=== PATIENT | male | born 1940 | race Caucasian/White ===

== ENCOUNTER 2019-07-18 10:14 | Emergency (ER) | payer MEDICARE, OTHER ==
[2019-07-18 10:48] LABS: BASOPHILS % (AUTO) 0.3 %; EOSINOPHILS # (AUTO) 0.1 10^3/uL (0.0-0.7); EOSINOPHILS % (AUTO) 1.1 %; HGB - HEMOGLOBIN 15.7 g/dL (14.0-18.0); LYMPHOCYTES # (AUTO) 1.3 10^3/uL (1.5-3.5); LYMPHOCYTES % (AUTO) 11.5 %; MEAN CORPUSCULAR HGB CONC 34.7 g/dL (32.0-36.0); MEAN CORPUSCULAR VOLUME 100.7 fL (80.0-94.0); MEAN PLATELET VOLUME 10.6 fL (7.4-11.4); MONOCYTES # (AUTO) 0.9 10^3/uL (0.0-1.0); MONOCYTES % (AUTO) 7.5 %; NEUTROPHILS # (AUTO) 9.1 10^3/uL (1.5-6.6); NEUTROPHILS % (AUTO) 79.3 %; PLT - PLATELET COUNT 184 10^3/uL (130-450); RED BLOOD COUNT 4.49 10^6/uL (4.70-6.10); RED CELL DISTRIBUTION WIDTH 13.3 % (12.0-15.0); WHITE BLOOD COUNT 11.4 x10^3/uL (4.8-10.8)
[2019-07-18 11:02] LABS: ALBUMIN 4.4 g/dL (3.2-5.5); ALBUMIN/GLOBULIN RATIO 1.3 (1.0-2.2); BILIRUBIN,TOTAL 1.7 mg/dL (0.2-1.0); CALCIUM 8.8 mg/dL (8.5-10.3); TOTAL PROTEIN 7.9 g/dL (6.7-8.2)
--- NOTE | 2019-07-18 11:04 | ED Physician Documentation ---
PD HPI ABD PAIN - Stated complaint Stated Complaint: ABDOMINAL PX - Chief complaint Chief Complaint: Abd Pain - History obtained from History obtained from: Patient - History of Present Illness Timing - onset: Today Timing - duration: Days (1) Timing - details: Gradual onset Pain level max: 8 Pain level now: 3 Quality: Aching, Pain Location: Suprapubic, LLQ Improved by: Laying still Worsened by: Moving, Palpation Associated symptoms: Diarrhea. No: Fever, Nausea, Vomiting, Hematemesis, Constipation, Melena, Hematochezia, Dysuria Similar symptoms before: Diagnosis (diverticulitis) Review of Systems Constitutional: denies: Fever, Chills GI: denies: Vomiting, Hematemesis, Bloody / black stool Skin: denies: Rash Musculoskeletal: denies: Neck pain, Back pain Neurologic: denies: Headache PD PAST MEDICAL HISTORY - Past Medical History Past Medical History: Yes GI: Diverticulitis - Present Medications Home Medications: Ambulatory Orders Medication Instructions Recorded Confirmed Amox/Clav 875/125 [Augmentin] 1 each PO Q12H #20 tablet 07/18/19 - Allergies Allergies/Adverse Reactions: Allergies Allergy/AdvReac Type Severity Reaction Status Date / Time No Known Drug Allergies Allergy Verified 07/18/19 10:29 - Social History Does the pt smoke?: No Smoking Status: Never smoker PD ED PE NORMAL - Vitals Vital signs reviewed: Yes - General General: Alert and oriented X 3, No acute distress, Well developed/nourished - HEENT HEENT: PERRL, Moist mucous membranes - Neck Neck: Supple, no meningeal sign - Cardiac Cardiac: RRR - Respiratory Respiratory: No respiratory distress, Clear bilaterally - Abdomen Abdomen: Soft, Non distended, Other (Tender to palpation suprapubic and left lower quadrant. No peritoneal signs.) - Derm Derm: Warm and dry - Extremities Extremities: No edema - Neuro Neuro: Alert and oriented X 3 - Psych Psych: Normal mood, Normal affect Results - Vitals Vitals: Vital Signs - 24 hr 07/18/19 07/18/19 10:17 13:11 Temperature 36.9 C 36.8 C Heart Rate 86 95 Respiratory 20 17 Rate Blood Pressure 135/88 H 165/82 H O2 Saturation 97 98 Oxygen O2 Source Room air - Labs Labs: Laboratory Tests 07/18/19 07/18/19 10:40 10:40 WBC 11.4 H RBC 4.49 L Hgb 15.7 Hct 45.2 MCV 100.7 H MCH 35.0 H MCHC 34.7 RDW 13.3 Plt Count 184 MPV 10.6 Neut # (Auto) 9.1 H Lymph # (Auto) 1.3 L Lander # (Auto) 0.9 Eos # (Auto) 0.1 Baso # (Auto) 0.0 Absolute Nucleated RBC 0.00 Nucleated RBC % 0.0 Sodium 134 L Potassium 3.7 Chloride 104 Carbon Dioxide 24 Anion Gap 6.0 BUN 23 H Creatinine 1.0 Estimated GFR (MDRD) 72 L Glucose 108 H Calcium 8.8 Total Bilirubin 1.7 H AST 32 ALT 20 Alkaline Phosphatase 81 Total Protein 7.9 Albumin 4.4 Globulin 3.5 Albumin/Globulin Ratio 1.3 Lipase 25 - Rads (name of study) CT abd/pelvis Radiology: Prelim report reviewed, EMP read contemporaneously, See rad report (1. Sigmoid tic colitis with no pericolic abscess identified. 2. Small gallstones 2-3 mm gallbladder neck with no CT evidence for cholecystitis or biliary obstruction. ) PD MEDICAL DECISION MAKING - ED course Complexity details: reviewed results, re-evaluated patient, considered differential, d/w patient ED course: 79-year-old male presents to the emergency department with a sigmoid tic colitis. No abscess. Will place on antibiotics. He is well-appearing, nontoxic. Afebrile. Patient counseled regarding signs and symptoms for which I believe and urgent re-evaluation would be necessary. Patient with good understanding of and agreement to plan and is comfortable going home at this time This document was made in part using voice recognition software. While efforts are made to proofread this document, sound alike and grammatical errors may occur. Departure - Departure Disposition: 01 Home, Self Care Clinical Impression: Diverticulitis of gastrointestinal tract Condition: Good Instructions: ED Diverticulitis Follow-Up: Arian Coe MD [Primary Care Provider] - Within 3 Days Prescriptions: Amox/Clav 875/125 [Augmentin] 1 each PO Q12H #20 tablet Comments: Take all antibiotics until gone. Return if you worsen. This should improve over the next 24 to 48 hours. Return if you worsen including worsening pain or fever. Discharge Date/Time: 07/18/19 13:12
[2019-07-18] MEDS ORDERED: IOVERSOL 320 100 ML VIAL IVP ONE ×2 (11:08→15:29)
--- NOTE | 2019-07-18 12:47 | CT Report ---
Reason: lower abd pain Procedure Date: 07/18/2019 Accession Number: [id number] / [id number] Procedure: CT - Abdomen/Pelvis W CPT Code: Final Report FULL RESULT: EXAM: CT ABDOMEN AND PELVIS EXAM DATE: 07/18/2019 11:31 AM. CLINICAL HISTORY: Lower abd pain. COMPARISONS: None. TECHNIQUE: Routine helical CT imaging was performed through the abdomen and pelvis. IV contrast: OPTIRAY 320. Enteric contrast: No. Reconstructions: Coronal and sagittal. In accordance with CT protocol optimization, one or more of the following dose reduction techniques were utilized for this exam: automated exposure control, adjustment of mA and/or KV based on patient size, or use of iterative reconstructive technique. FINDINGS: Lung Bases: Unremarkable. Liver: Fatty infiltration of the liver. Liver is negative for focal mass or intrahepatic biliary dilatation. Gallbladder/Bile Ducts: Common bile duct caliber 4 mm. Negative for calcified distal common bile duct stone. Small 2-3 mm gallstones gallbladder neck. Negative for pericholecystic fluid. Spleen: Normal. Pancreas: Pancreas is negative for focal mass or pancreatic duct dilatation. Multifocal calcification pancreatic body suggestive of focal chronic pancreatitis. Adrenal Glands: Normal. Kidneys: Normal. No masses or hydronephrosis. Peritoneal Cavity/Bowel: Segmental wall thickening sigmoid colon with pericolic inflammatory changes consistent with diverticulitis. Negative for pericolic abscess. The appendix is well visualized and normal. Pelvic Organs: Normal. The bladder and visualized pelvic organs are within normal limits. Vasculature: Moderate atheromatous changes with the calcification abdominal aorta. Maximum transverse dimension abdominal aorta 2.5 cm. Celiac artery and superior mesenteric artery negative for stenosis. Main renal arteries negative for stenosis. Normal enhancement of the superior mesenteric vein and portal vein. Bones: Severe disk degeneration L5-S1. Moderate right and mild left L5-S1 foraminal stenosis. Diffuse disk bulge L4-L5. Moderate spinal canal stenosis L4-L5 from disk bulge and facet hypertrophy. Mild bilateral L4-L5 foraminal stenosis. Mild spinal canal stenosis and mild bilateral lateral recess stenosis L3-L4 from facet hypertrophy and ligamentum flavum thickening. Ankylosis anterior right sacroiliac joint. Other: Small bilateral inguinal hernias containing fat with the right greater than the left. IMPRESSION: 1. Sigmoid tic colitis with no pericolic abscess identified. 2. Small gallstones 2-3 mm gallbladder neck with no CT evidence for cholecystitis or biliary obstruction. RADIA
[2019-07-18] MEDS ORDERED: AMOX/CLAV 875 MG/125 MG TABLET PO STA (12:58)
[2019-07-18 13:12] VITALS: BP 165/82
== END 2019-07-18 13:12 | disposition home or self-care (01) ==
LOC: ED 10:14
DX: K57.32 Diverticulitis of large intestine without perforation or abscess without bleeding (principal)
CPT/HCPCS: 36415; 74177; 80053; 83690; 85025; 99284; A9270; Q9967

== ENCOUNTER 2021-07-28 13:18 | Outpatient (CLI) | payer MEDICARE, OTHER ==
[2021-07-28 20:16] LABS: HCT - HEMATOCRIT 39.9 % (42.0-52.0); HGB - HEMOGLOBIN 13.6 g/dL (14.0-18.0); MEAN CORPUSCULAR HGB CONC 34.1 g/dL (32.0-36.0); MEAN CORPUSCULAR VOLUME 99.8 fL (80.0-94.0); MEAN PLATELET VOLUME 11.8 fL (7.4-11.4); WHITE BLOOD COUNT 5.9 x10^3/uL (4.8-10.8)
[2021-07-28 20:18] LABS: CALCIUM 9.6 mg/dL (8.5-10.3); CREATININE 1.1 mg/dL (0.6-1.2); POTASSIUM 4.2 mmol/L (3.5-5.0)
[2021-07-28 20:21] LABS: PARTIAL THROMBOPLASTIN TIME 29.7 secs (24.9-33.3)
[2021-07-28 20:27] LABS: INR 1.2 (0.8-1.2); PT - PROTHROMBIN TIME 12.9 secs (9.9-12.6)
== END 2021-07-28 13:19 | disposition home or self-care (01) ==
LOC: LAB.S 13:18
PROVIDERS: ATTEND Internal Medicine
DX: R06.09 Other forms of dyspnea (principal)
CPT/HCPCS: 36415; 80048; 85027; 85610; 85730

== ENCOUNTER 2023-12-14 07:38 | Emergency (ER) | payer MEDICARE, OTHER ==
[2023-12-14 08:06] LABS: BASOPHILS % (AUTO) 0.3 %; EOSINOPHILS # (AUTO) 0.2 10^3/uL (0.0-0.7); EOSINOPHILS % (AUTO) 3.1 %; HCT - HEMATOCRIT 38.8 % (42.0-52.0); HGB - HEMOGLOBIN 13.2 g/dL (14.0-18.0); LYMPHOCYTES # (AUTO) 0.9 10^3/uL (1.5-3.5); LYMPHOCYTES % (AUTO) 11.4 %; MEAN CORPUSCULAR HEMOGLOBIN 34.4 pg (27.0-31.0); MEAN PLATELET VOLUME 10.8 fL (7.4-11.4); MONOCYTES # (AUTO) 0.7 10^3/uL (0.0-1.0); MONOCYTES % (AUTO) 9.1 %; NEUTROPHILS # (AUTO) 5.8 10^3/uL (1.5-6.6); NEUTROPHILS % (AUTO) 75.8 %; PLT - PLATELET COUNT 153 10^3/uL (130-450); RED BLOOD COUNT 3.84 10^6/uL (4.70-6.10); RED CELL DISTRIBUTION WIDTH 12.8 % (12.0-15.0); WHITE BLOOD COUNT 7.7 x10^3/uL (4.8-10.8)
--- NOTE | 2023-12-14 08:11 | ED Physician Documentation ---
PD HPI ABD PAIN - Stated complaint Stated Complaint: LT FLANK PX - Chief complaint Chief Complaint: Abd Pain - History obtained from History obtained from: Patient, Family ( Petra) - History of Present Illness Timing - onset: How many days ago (2) Timing - duration: Days (2) Timing - details: Gradual onset, Still present Quality: Cramping, Sharp, Pain Location: LLQ Radiation: Left flank Improved by: Laying still Worsened by: Position, Palpation Associated symptoms: Nausea, Diarrhea (4 loose stools yesterday). No: Vomiting Similar symptoms before: Diagnosis (diverticulitis) Recently seen: Not recently seen - Additional information Additional information: Tien Sanderson is an 83-year-old male with a prior history of diverticulitis who presents to the emergency department today with abdominal pain in the left lower quadrant for 2 days. He has had some nausea associated with this he has not had any vomiting he has had 4 loose stools yesterday no blood was noted. He has a 2 out of 10 pain at rest and the pain increases dramatically with palpation. He has had chills he has not had fever. He has a history of coronary artery disease, has [address] and is treated for hypertension and hyperlipidemia.. Review of Systems Constitutional: reports: Chills, Sweats. denies: Fever Eyes: denies: Decreased vision Ears: denies: Ear pain Nose: denies: Rhinorrhea / runny nose, Congestion Throat: denies: Sore throat Cardiac: denies: Chest pain / pressure, Palpitations Respiratory: denies: Dyspnea, Cough GI: reports: Abdominal Pain, Nausea, Diarrhea. denies: Vomiting : denies: Dysuria, Frequency Skin: denies: Rash Musculoskeletal: denies: Neck pain, Back pain, Extremity pain Neurologic: denies: Generalized weakness, Focal weakness, Numbness, Difficulty speaking, Headache, Head injury PD PAST MEDICAL HISTORY - Past Medical History Past Medical History: Yes Cardiovascular: Coronary artery disease Respiratory: None Neuro: None Endocrine/Autoimmune: None GI: Diverticulitis : None, Kidney stones HEENT: None Musculoskeletal: Chronic back pain Other Past Medical History: prostate cancer - Past Surgical History Past Surgical History: Yes Cardiovascular: Coronary stent - Present Medications Home Medications: Ambulatory Orders Medication Instructions Recorded Confirmed Acetaminophen [Tylenol] 1,000 mg PO Q4-6H PRN 12/14/23 12/14/23 Amlodipine Besylate [Norvasc] 10 mg PO DAILY 12/14/23 12/14/23 Amox/Clav 875/125 [Augmentin] 1 each PO Q12H #20 tablet 12/14/23 Aspirin EC [Ecotrin] 81 mg PO DAILY 12/14/23 12/14/23 Atorvastatin Calcium 40 mg PO DAILY 12/14/23 12/14/23 Losartan Potassium 25 mg PO DAILY 12/14/23 12/14/23 Multivitamin 1 each PO DAILY 12/14/23 12/14/23 - Allergies Allergies/Adverse Reactions: Allergies Allergy/AdvReac Type Severity Reaction Status Date / Time No Known Drug Allergies Allergy Verified 12/14/23 07:45 - Social History Does the pt smoke?: No Smoking Status: Former smoker Does the pt drink ETOH?: Yes ETOH Use: Liquor Does the pt have substance abuse?: No - Immunizations Immunizations are current?: Yes - POLST Patient has POLST: No PD ED PE NORMAL - Vitals Vital signs reviewed: Yes (hypertensive ) - General General: Alert and oriented X 3, No acute distress, Well developed/nourished - HEENT HEENT: Atraumatic, PERRL, EOMI, Other (dry mucous membranes ) - Neck Neck: Supple, no meningeal sign, No bony TTP - Respiratory Respiratory: No respiratory distress - Abdomen Abdomen: Soft, Non distended, No organomegaly, Other (specific LLQ tenderness with rebound tenderness and without significant referred tenderness. ) - Back Back: No CVA TTP, No spinal TTP - Derm Derm: Normal color, Warm and dry, No rash - Extremities Extremities: No deformity, No edema - Neuro Neuro: Alert and oriented X 3, cardiology technologist 2-12 intact, No motor deficit, No sensory deficit, Normal speech Eye Opening: Spontaneous Motor: Obeys Commands Verbal: Oriented GCS Score: 15 - Psych Psych: Normal mood, Normal affect Results - Vitals Vitals: Vital Signs - 24 hr 12/14/23 07:45 Temperature 36.8 C Heart Rate 91 Respiratory 18 Rate Blood Pressure 160/82 H O2 Saturation 97 Oxygen O2 Source Room air - Labs Labs: Laboratory Tests 12/14/23 12/14/23 12/14/23 07:53 07:53 08:15 WBC 7.7 RBC 3.84 L Hgb 13.2 L Hct 38.8 L MCV 101.0 H MCH 34.4 H MCHC 34.0 RDW 12.8 Plt Count 153 MPV 10.8 Neut # (Auto) 5.8 Lymph # (Auto) 0.9 L [place]gett # (Auto) 0.7 Eos # (Auto) 0.2 Baso # (Auto) 0.0 Absolute Nucleated RBC 0.00 Nucleated RBC % 0.0 Sodium 132 L Potassium 4.0 Chloride 101 Carbon Dioxide 25 Anion Gap 6.0 BUN 15 Creatinine 1.0 Estimated GFR (MDRD) 71 L Glucose 147 H Calcium 9.7 Total Bilirubin 1.4 H AST 35 ALT 33 Alkaline Phosphatase 76 Total Protein 6.7 Albumin 3.9 Globulin 2.8 Albumin/Globulin Ratio 1.4 Lipase 15 Urine Color YELLOW Urine Clarity CLEAR Urine pH 6.5 Ur Specific Lilly 1.015 Urine Protein NEGATIVE Urine Glucose (UA) NEGATIVE Urine Ketones NEGATIVE Urine Occult Blood TRACE-INTA Urine Nitrite NEGATIVE Urine Bilirubin NEGATIVE Urine Urobilinogen 0.2 (NORMAL) Ur Leukocyte Esterase NEGATIVE Ur Microscopic Review NOT INDICATED Urine Culture Comments NOT INDICATED Procedures - IVC sono (time) 0810 Bedside IVC sono: IVC measures (cm) (1.01), Dehydration (est >1 liter deficit) PD Medical Decision Making - ED course Complexity details: reviewed old records, reviewed results, re-evaluated patient, considered differential, d/w patient, d/w family Reviewed Lab Results: We reviewed a complete blood count showing a normal white blood cell count hemoglobin depressed at 13.2 similar to prior from 2 years ago and a hematocrit of 38.8 again similar to prior from 2 years ago chemistries show serum sodium low at 132 kidney and liver function are normal with a bilirubin mildly elevated at 1.4 similar to what was registered for years ago urinalysis is unremarkable. In view of the patient's presentation with diarrhea and abdominal pain and the diagnosis of colitis this does not appear to be an overwhelming infection with a normal white blood cell count and otherwise these laboratory studies do not contribute to a specific diagnosis. CT ab/pel with: Impression: Finding is concerning for infectious or inflammatory colitis involving the descending colon and sigmoid colon. Underlying neoplastic process cannot be entirely excluded. GI correlation and possible endoscopic evaluation is recommended. No abscess collection. No free fluid or free air. Cholelithiasis without CT evidence of acute cholecystitis. ED course: 83-year-old Tien Sanderson presents to the emergency department with left lower quadrant abdominal pain has a history of diverticulitis and has an examination consistent with diverticulitis. He is afebrile on arrival to the emergency department his level of pain is not exquisite. He is administered intravenous fluid and Zofran and CT of the abdomen pelvis with contrast is undertaken. The patient appears to have a segment of colitis in the proximal sigmoid colon and we will treat him for colitis with Augmentin expect resolution and encouraged the patient to have follow-up colonoscopy. Departure - Departure Disposition: 01 Home, Self Care Clinical Impression: Colitis Condition: Stable Instructions: ED Diverticulitis Follow-Up: Arian Coe MD [Primary Care Provider] - Prescriptions: Amox/Clav 875/125 [Augmentin] 1 each PO Q12H #20 tablet Comments: Tien, today it looks like you have a segment of the proximal sigmoid colon that is inflamed consistent with an acute colitis or infection in the wall of the colon. The location of this is directly where you have your pain. I have E scribed some Augmentin to the [facility] in [place]. Our expectations with treatment are improvement in your pain over the next 2 to 3 days and resolution of your symptoms. A follow-up colonoscopy is recommended and a follow-up with your primary care doctor for this referral will likely be required. Forms: PCP List
[2023-12-14 08:19] LABS: ALBUMIN 3.9 g/dL (3.2-5.5); ALBUMIN/GLOBULIN RATIO 1.4 (1.0-2.2); BILIRUBIN,TOTAL 1.4 mg/dL (0.2-1.0); CALCIUM 9.7 mg/dL (8.5-10.3); TOTAL PROTEIN 6.7 g/dL (6.4-8.9)
[2023-12-14] MEDS: ONDANSETRON 4 MG/2 ML VIAL IVP STA (08:21)
[2023-12-14] MEDS: SODIUM CHLORIDE 0.9% 1,000 ML IV STA (08:21)
[2023-12-14] MEDS ORDERED: iohexoL-300 100 ML VIAL ONE (08:22)
[2023-12-14 08:23] LABS: BILIRUBIN,URINE NEGATIVE (NEGATIVE); GLUCOSE, URINE (UA) NEGATIVE (NEGATIVE); KETONES,URINE (UA) NEGATIVE (NEGATIVE); LEUKOCYTE ESTERASE, URINE NEGATIVE (NEGATIVE); NITRITE,URINE NEGATIVE (NEGATIVE); OCCULT BLOOD,URINE TRACE-INTA (NEGATIVE); PH,URINE 6.5 PH (5.0-7.5); PROTEIN,URINE NEGATIVE (NEGATIVE); UROBILINOGEN,URINE 0.2 (NORMAL) E.U./dL (NORMAL)
[2023-12-14 08:24] LABS: CLARITY,URINE CLEAR (CLEAR)
[2023-12-14] MEDS: iohexoL-300 100 ML VIAL IVP ONE (09:10)
--- NOTE | 2023-12-14 09:31 | CT Report ---
PROCEDURE: Abdomen/Pelvis W INDICATIONS: LLQ tenderness CONTRAST: iohex 300 100ml TECHNIQUE: After the administration of intravenous contrast, a CT scan of the abdomen and pelvis was performed. Images were recorded and evaluated at appropriate window settings. Reformats: coronal and sagittal. F or radiation dose reduction, the following was used: automated exposure control, adjustment of mA and /or kV according to patient size. COMPARISON: 07/18/2019. FINDINGS: Image quality: Diagnostic. Lower chest: Bibasilar scarring/atelectasis are seen. Heart size is enlarged, no pericardial effusion .. Liver: No solid mass. Gallbladder: Small calcified stones are seen in dependent portion of gallbladder lumen. No gallbladde r wall thickening. Biliary tree: No intrahepatic or extrahepatic dilation, accounting for age. Spleen: No splenomegaly. Pancreas: No gross solid appearing pancreatic mass. No significant pancreatic ductal dilatation. Calc ifications are noted scattered in body of pancreas suggestive of sequela from prior episodes of pancr eatitis. Adrenals: No adrenal nodule. Kidneys and ureters: No hydronephrosis. No renal cystic lesion which requires follow up. No solid mas s. Stomach, bowel and peritoneum: There is no evidence of bowel obstruction. There is colonic wall thick ening and pericolonic fat stranding involving splenic flexure, descending colon and sigmoid colon mos t notably involving proximal descending colon with significant wall thickening and narrowing of the l umen. No abscess collection. No peritoneal free fluid or free air. Sigmoid diverticulosis is seen. Lymph nodes: No central or retroperitoneal adenopathy. Vessels: No infrarenal aortic aneurysm. Patent portal vein. PELVIS Reproductive organs: Unremarkable. Bladder: No abnormal wall thickening, accounting for underdistention. Pelvic lymph nodes: No pelvic adenopathy by size criteria. Bones: No aggressive osseous abnormality. Other: No significant ventral or inguinal hernia. IMPRESSION: 1. Finding is concerning for infectious or inflammatory colitis involving descending colon and sigmoi d colon. Underlying neoplastic process cannot be entirely excluded. GI correlation and possible endos copic evaluation is recommended. No abscess collection. No free fluid or free air. 2. Cholelithiasis without CT evidence of acute cholecystitis. Reviewed by: Antwan Christine MD on 12/14/2023 9:30 AM PDT Approved by: Antwan Christine MD on 12/14/2023 9:30 AM PDT Station ID: [id number]
[2023-12-14 10:12] VITALS: BP 141/89; O2SAT 94
== END 2023-12-14 10:10 | disposition home or self-care (01) ==
LOC: ED 07:38
DX: K52.9 Noninfective gastroenteritis and colitis, unspecified (principal); K80.20 Calculus of gallbladder without cholecystitis without obstruction; I25.10 Atherosclerotic heart disease of native coronary artery without angina pectoris; Z87.442 Personal history of urinary calculi; Z85.46 Personal history of malignant neoplasm of prostate; Z79.899 Other long term (current) drug therapy
CPT/HCPCS: 36415; 74177; 80053; 81003; 83690; 85025; 96361; 96374; 99284; Q9967; 81001; 87086